=== PATIENT | male | born 1945 | race Caucasian/White ===

== ENCOUNTER 2024-06-11 14:26 | Inpatient (IN) ==
[2024-06-11 17:01] LABS: Blood Urea Nitrogen 25 mg/dL (8-23); Calcium 8.3 mg/dL (8.6-10.4); Carbon Dioxide 21 mmol/L (22-30); Chloride 94 mmol/L (96-108); Glomerular Filtration Rate 43; Glucose 188 mg/dL (70-105); Potassium 4.6 mmol/L (3.3-5.1); Sodium 127 mmol/L (133-145)
[2024-06-11] MEDS: FUROSEMIDE 20 MG/2 ML VIAL IV ONE (17:27)
[2024-06-11] MEDS: 0.9 % SODIUM CHLORIDE 500 ML IV ONE (17:27)
[2024-06-11 17:46] LABS: Basophils # (Auto) 0.06 K/mcL (0.00-0.30); Basophils % (Auto) 0.8 % (0.0-2.0); Eosinophils # (Auto) 0.12 K/mcL (0.00-0.70); Eosinophils % (Auto) 1.7 % (0.0-7.0); Hematocrit 29.1 % (40.1-51.0); Hemoglobin 9.7 g/dL (13.7-17.5); Lymphocytes # (Auto) 1.28 K/mcL (1.50-4.80); Mean Cell Volume 89.3 fL (80.0-100.0); Mean Corpuscular HGB Conc 33.3 g/dL (31.0-36.0); Mean Platelet Volume 9.8 fL (8.8-12.5); Monocytes # (Auto) 1.09 K/mcL (0.10-0.90); Monocytes % (Auto) 15.3 % (1.0-12.0); Neutrophils % (Auto) 63.9 % (38.0-78.0); Platelet Count 406 K/mcL (140-440); RBC 3.26 M/mcL (4.63-6.08); Red Cell Distribution Width 12.5 % (11.5-14.5); WBC 7.1 K/mcL (4.5-11.0)
[2024-06-11 17:50] LABS: Thyroid Stimulating Hormone 2.74 uIU/mL (0.27-5.01)
[2024-06-11 20:11] LABS: Sodium, Urine Random 79 mmol/L
[2024-06-11 20:22] LABS: Appearance,Urine CLEAR (Clear); Bilirubin,Urine Negative (Negative); Color,Urine STRAW; Glucose,Urine (UA) Negative (Negative); Ketones,Urine Negative (Negative); Leukocyte Esterase,Urine Negative /uL (Negative); Nitrate,Urine Negative (Negative); Protein,Urine Negative (Negative); Specific Gravity,Urine 1.006 (1.000-1.035); Urine Blood Negative (Negative); Urobilinogen,Urine Negative
[2024-06-11 20:36] LABS: Osmolality,Urine 315 mOSM/kg (80-1000)
[2024-06-11] MEDS ORDERED: traZODone HCL 50 MG TABLET PO PRN (21:29)
[2024-06-11] MEDS ORDERED: IPRATROPIUM/ALBUTEROL 3 ML AMPUL.NEB NEB PRN (21:29)
[2024-06-11] MEDS ORDERED: DEXTROSE 50% 50 ML VIAL IV PRN (21:29)
[2024-06-11] MEDS ORDERED: DEXTROSE 31 GM ORAL.SUSP PO PRN (21:29)
[2024-06-11] MEDS ORDERED: ACETAMINOPHEN 325 MG TABLET PO PRN (21:29)
[2024-06-11] MEDS ORDERED: ONDANSETRON 4 MG/2 ML VIAL IV PRN (21:29)
[2024-06-11] MEDS: INSULIN LISPRO 1 UNIT/0.01 ML UNIT SQ SCH (22:03)
[2024-06-11] MEDS: HEPARIN 5,000 UNIT/ML VIAL SQ SCH (22:09)
[2024-06-11] MEDS: SENNOSIDES 1 TABLET PO SCH (22:09)
[2024-06-11] MEDS: DOCUSATE SODIUM 100 MG CAPSULE PO SCH (22:09)
[2024-06-11] MEDS: 0.9 % SODIUM CHLORIDE 10 ML SYRINGE IV SCH (22:09)
[2024-06-11 22:30] LABS: Hemoglobin A1C 7.3 % Hgb (4.0-6.0)
[2024-06-12 06:13] LABS: Basophils # (Auto) 0.06 K/mcL (0.00-0.30); Basophils % (Auto) 1.1 % (0.0-2.0); Eosinophils # (Auto) 0.09 K/mcL (0.00-0.70); Eosinophils % (Auto) 1.6 % (0.0-7.0); Hematocrit 27.3 % (40.1-51.0); Hemoglobin 9.2 g/dL (13.7-17.5); Lymphocytes # (Auto) 1.44 K/mcL (1.50-4.80); Lymphocytes % (Auto) 25.2 % (15.5-49.0); Mean Cell Volume 88.6 fL (80.0-100.0); Mean Corpuscular HGB Conc 33.7 g/dL (31.0-36.0); Mean Platelet Volume 9.4 fL (8.8-12.5); Monocytes # (Auto) 1.04 K/mcL (0.10-0.90); Monocytes % (Auto) 18.2 % (1.0-12.0); Neutrophils % (Auto) 53.7 % (38.0-78.0); Platelet Count 348 K/mcL (140-440); RBC 3.08 M/mcL (4.63-6.08); Red Cell Distribution Width 12.3 % (11.5-14.5); WBC 5.7 K/mcL (4.5-11.0)
[2024-06-12 06:21] LABS: ALT/SGPT 8 U/L (<40); AST/SGOT 18 U/L (<40); Albumin 3.9 gm/dL (3.2-5.2); Albumin/Globulin Ratio 1.4 (1.0-2.3); Alkaline Phosphatase 86 U/L (39-117); Bilirubin,Total 0.5 mg/dL (0.1-1.0); Blood Urea Nitrogen 21 mg/dL (8-23); Calcium 8.8 mg/dL (8.6-10.4); Carbon Dioxide 20 mmol/L (22-30); Chloride 100 mmol/L (96-108); Globulin 2.7 gm/dL (2.2-3.7); Glomerular Filtration Rate 51; Glucose 132 mg/dL (70-105); Potassium 4.4 mmol/L (3.3-5.1); Sodium 133 mmol/L (133-145)
[2024-06-12] MEDS: FUROSEMIDE 20 MG TABLET PO SCH (07:07)
[2024-06-12] MEDS: ASPIRIN 81 MG TAB.CHEW PO SCH (10:17)
[2024-06-12] MEDS: glipiZIDE 5 MG TABLET PO SCH (10:17)
[2024-06-12] MEDS ORDERED: TAMSULOSIN 0.4 MG CAPSULE PO SCH (21:00)
[2024-06-13] MEDS ORDERED: TIMOLOL 0.5% OPHTH DROPS BOTTLE 5ML OU SCH (09:00)
[2024-06-13] MEDS ORDERED: amLODIPine 5 MG TABLET PO SCH (09:00)
== END 2024-06-12 12:50 | disposition home or self-care (01) | DRG 291 ==
LOC: ED 14:26 → MEDSUR 21:25
PROVIDERS: ADMIT Internal Medicine; ATTEND Internal Medicine